=== PATIENT | female | born 1990 | race Caucasian/White ===

== ENCOUNTER 2016-05-16 15:52 | Emergency (ER) | payer OTHER ==
[2016-05-16 16:55] VITALS: BP 107/73
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
== END 2016-05-16 17:30 | disposition home or self-care (01) ==
LOC: UCEAST 15:52
DX: T59.0X1A Toxic effect of nitrogen oxides, accidental (unintentional), initial encounter (principal); T23.621A Corrosion of second degree of single right finger (nail) except thumb, initial encounter; Y93.9 Activity, unspecified; Y92.9 Unspecified place or not applicable
CPT/HCPCS: 99201; G0463

== ENCOUNTER 2016-06-12 12:56 | Emergency (ER) | payer OTHER, BC ==
[2016-06-12] MEDS ORDERED: NS 0.9% 1000 ML* 1,000 ML IV SCH (14:00)
[2016-06-12 14:01] LABS: Hematocrit 42 % (35-47); Hemoglobin 14.5 g/dl (12.0-16.0); Mean Corpuscular HGB Conc 34 g/dl (31-36); Mean Corpuscular Hemoglobin 32 pg (27-31); Mean Corpuscular Volume 95 fL (80-97); Mean Platelet Volume 9 um3 (7.4-10.4); Red Blood Count 4.48 10^6/ul (4.0-5.4); Red Cell Distribution Width 14 % (10.5-15); White Blood Count 7.8 10^3/ul (3.5-10.8)
--- NOTE | 2016-06-12 14:10 | RAD ---
HISTORY: Left upper extremity numbness and tingling, difficulty speaking COMPARISONS: None TECHNIQUE: Multiple contiguous axial CT scans were obtained of the head without intravenous contrast. FINDINGS: HEMORRHAGE/INFARCT: There is no hemorrhage or acute infarct. MASSES/SHIFT: There is no mass or shift. EXTRA-AXIAL SPACES: There are no extra-axial fluid collections. SULCI AND VENTRICLES: The sulci and ventricles are normal in size and position for the patient's stated age. CEREBRUM: There are no focal parenchymal abnormalities. BRAINSTEM: There are no focal parenchymal abnormalities. CEREBELLUM: There are no focal parenchymal abnormalities. VESSELS: The vessels are grossly normal. PARANASAL SINUSES: The paranasal sinuses are clear. ORBITS: The orbits are unremarkable. BONES AND SOFT TISSUE: No bone or soft tissue abnormalities are noted. OTHER: None IMPRESSION: NO ACUTE INTRACRANIAL PATHOLOGY. PRELIMINARY FINDINGS WERE DISCUSSED WITH DR. AMARO IN THE EMERGENCY DEPARTMENT AT APPROXIMATELY 2:07 PM ON JUNE 12, 2016.
[2016-06-12 14:17] LABS: ALT 21 U/L (7-52); AST 27 U/L (13-39); Albumin 4.3 g/dL (3.2-5.2); Alkaline Phosphatase 39 U/L (34-104); Anion Gap 2 mmol/L (2-11); BUN/Creatinine Ratio 23.7 (8-20); Blood Urea Nitrogen 18 mg/dL (6-24); CO2 Carbon Dioxide 29 mmol/L (22-32); Calcium 9.5 mg/dL (8.6-10.3); Chloride 103 mmol/L (101-111); Cholesterol 130 mg/dL; EGFR African American 120.2 (>60); EGFR Non-African American 93.5 (>60); Globulin 2.4 g/dL (2-4); Glucose 76 mg/dL (70-100); HDL Cholesterol 67.6 mg/dL; LDL Cholesterol 55 mg/dL; Potassium 3.9 mmol/L (3.5-5.0); Sodium 134 mmol/L (133-145); Total Protein 6.7 g/dL (6.4-8.9); Triglycerides 38 mg/dL
--- NOTE | 2016-06-12 14:23 | RAD ---
INDICATION: Left arm weakness COMPARISON: None TECHNIQUE: PA and lateral dual-energy views were obtained. FINDINGS: Bones/Soft Tissues: There are no acute bony findings. Cardiomediastinal: The cardiomediastinal silhouette is normal. Lungs: There are no infiltrates. Pleura: There are no pleural effusions. Other: None IMPRESSION: NEGATIVE EXAMINATION.
--- NOTE | 2016-06-12 15:11 | ED ---
Charlie, DoctorJaneth, scribed for Thaddeus Amaro MD on 06/12/16 at 1406 . Neurological HPI - HPI Summary HPI Summary: 25 year old female arrived to [facility] by ambulance c/o inability to move her left arm and general weakness. She reports the first episode beginning today at 11: 00 am with numbness, weakness, and tingling from the left shoulder through the left fingertips. She additionally describes her left hand "turning purple" while driving, and difficulty squeezing that hand. After arriving to [facility], she reports having another episode involving general weakness, difficulty moving her left arm, and numbness in the left hand. She has PMHx of anxiety. Sami Spears called for patient at 13:42. - History of Current Complaint Chief Complaint: EDExtremityUpper Stated Complaint: LT ARM PAIN/NUMBNESS Time Seen by Provider: 06/12/16 12:58 Hx Obtained From: Patient Hx Last Menstrual Period: 05/10/16 Onset/Duration: Gradual Onset Timing: Constant Onset Severity: Moderate Current Severity: Moderate Pain Intensity: 0 Pain Scale Used: 0-10 Numeric Character: Weak - general weakness, Numbness/Tingling - numbness in let arm, Motor Weakness - weakness when moving left arm Associated Signs and Symptoms: Positive: Weakness - generalized weakness, Numbness - Left arm numbness, Anxiety - Allergy/Home Medications Allergies/Adverse Reactions: Allergies Allergy/AdvReac Type Severity Reaction Status Date / Time Sulfa Antibiotics Allergy Rash Verified 06/12/16 13:32 PMH/Surg Hx/FS Hx/Imm Hx Infectious Disease History: No Infectious Disease History: Denies: Traveled Outside the [place] in Last 30 Days - Family History Known Family History: Negative: Cardiac Disease, Hypertension - Social History Occupation: Student Alcohol Use: None Substance Use Type: Reports: None Smoking Status (MU): Never Smoked Tobacco Review of Systems Negative: Fever Positive: Weakness - generalized weakness, Numbness - numbness in left arm Positive: Anxious All Other Systems Reviewed And Are Negative: Yes Physical Exam Triage Information Reviewed: Yes Vital Signs On Initial Exam: Initial Vitals Temp Pulse Resp BP Pulse Ox 98.8 F 67 20 136/86 99 06/12/16 13:15 06/12/16 13:15 06/12/16 13:15 06/12/16 13:15 06/12/16 13:15 Vital Signs Reviewed: Yes Appearance: Positive: Well-Appearing, No Pain Distress Skin: Positive: Warm, Skin Color Reflects Adequate Perfusion, Dry Head/Face: Positive: Normal Head/Face Inspection Eyes: Positive: EOMI, [facility] ENT: Positive: Normal ENT inspection Neck: Positive: Supple, Nontender Respiratory/Lung Sounds: Positive: Clear to Auscultation, Breath Sounds Present Cardiovascular: Positive: RRR Abdomen Description: Positive: Nontender, Soft Bowel Sounds: Positive: Present Musculoskeletal: Positive: Strength/ROM Intact - 5/5 bilateral ankle strength Neurological: Positive: Sensory/Motor Intact, Alert, Oriented to Person Place, Time. Negative: Normal - generalized weakness Psychiatric: Positive: Anxious Diagnostics - Vital Signs Vital Signs Temp Pulse Resp BP Pulse Ox 06/12/16 13:35 50 100 06/12/16 13:34 126/81 06/12/16 13:28 97.8 F 65 20 121/75 0 06/12/16 13:15 98.8 F 67 20 136/86 99 - Laboratory Lab Results: Lab Results 06/12/16 06/12/16 06/12/16 Range/Units 13:48 13:48 13:48 WBC 7.8 (3.5-10.8) 10^3/ul RBC 4.48 (4.0-5.4) 10^6/ul Hgb 14.5 (12.0-16.0) g/dl Hct 42 (35-47) % MCV 95 (80-97) fL MCH 32 H (27-31) pg MCHC 34 (31-36) g/dl RDW 14 (10.5-15) % Plt Count 193 (150-450) 10^3/ul MPV 9 (7.4-10.4) um3 Neut % (Auto) 69.3 (38-83) % Lymph % (Auto) 22.9 L (25-47) % [place] % (Auto) 6.4 (1-9) % Eos % (Auto) 0.7 (0-6) % Baso % (Auto) 0.7 (0-2) % Absolute Neuts (auto) 5.4 (1.5-7.7) 10^3/ul Absolute Lymphs (auto) 1.8 (1.0-4.8) 10^3/ul Absolute Monos (auto) 0.5 (0-0.8) 10^3/ul Absolute Eos (auto) 0.1 (0-0.6) 10^3/ul Absolute Basos (auto) 0.1 (0-0.2) 10^3/ul Absolute Nucleated RBC 0 10^3/ul Nucleated RBC % 0 INR (Anticoag Therapy) 0.96 (0.89-1.11) APTT 29.4 (26.0-36.3) seconds D-Dimer, Quantitative < 200 (Less Than 230) ng/mL Sodium 134 (133-145) mmol/L Potassium 3.9 (3.5-5.0) mmol/L Chloride 103 (101-111) mmol/L Carbon Dioxide 29 (22-32) mmol/L Anion Gap 2 (2-11) mmol/L BUN 18 (6-24) mg/dL Creatinine 0.76 (0.51-0.95) mg/dL Est GFR ( Amer) 120.2 (>60) Est GFR (Non-Af Amer) 93.5 (>60) BUN/Creatinine Ratio 23.7 H (8-20) Glucose 76 (70-100) mg/dL Lactic Acid (0.5-2.0) mmol/L Calcium 9.5 (8.6-10.3) mg/dL Total Bilirubin 0.80 (0.2-1.0) mg/dL AST 27 (13-39) U/L ALT 21 (7-52) U/L Alkaline Phosphatase 39 (34-104) U/L Troponin I 0.00 (<0.04) ng/mL Total Protein 6.7 (6.4-8.9) g/dL Albumin 4.3 (3.2-5.2) g/dL Globulin 2.4 (2-4) g/dL Albumin/Globulin Ratio 1.8 (1-3) Triglycerides 38 mg/dL Cholesterol 130 mg/dL LDL Cholesterol 55 mg/dL HDL Cholesterol 67.6 mg/dL Beta HCG, Quant < 0.60 mIU/mL Blood Type Antibody Screen 06/12/16 06/12/16 Range/Units 13:48 13:48 WBC (3.5-10.8) 10^3/ul RBC (4.0-5.4) 10^6/ul Hgb (12.0-16.0) g/dl Hct (35-47) % MCV (80-97) fL MCH (27-31) pg MCHC (31-36) g/dl RDW (10.5-15) % Plt Count (150-450) 10^3/ul MPV (7.4-10.4) um3 Neut % (Auto) (38-83) % Lymph % (Auto) (25-47) % [place] % (Auto) (1-9) % Eos % (Auto) (0-6) % Baso % (Auto) (0-2) % Absolute Neuts (auto) (1.5-7.7) 10^3/ul Absolute Lymphs (auto) (1.0-4.8) 10^3/ul Absolute Monos (auto) (0-0.8) 10^3/ul Absolute Eos (auto) (0-0.6) 10^3/ul Absolute Basos (auto) (0-0.2) 10^3/ul Absolute Nucleated RBC 10^3/ul Nucleated RBC % INR (Anticoag Therapy) (0.89-1.11) APTT (26.0-36.3) seconds D-Dimer, Quantitative (Less Than 230) ng/mL Sodium (133-145) mmol/L Potassium (3.5-5.0) mmol/L Chloride (101-111) mmol/L Carbon Dioxide (22-32) mmol/L Anion Gap (2-11) mmol/L BUN (6-24) mg/dL Creatinine (0.51-0.95) mg/dL Est GFR ( Amer) (>60) Est GFR (Non-Af Amer) (>60) BUN/Creatinine Ratio (8-20) Glucose (70-100) mg/dL Lactic Acid 1.2 (0.5-2.0) mmol/L Calcium (8.6-10.3) mg/dL Total Bilirubin (0.2-1.0) mg/dL AST (13-39) U/L ALT (7-52) U/L Alkaline Phosphatase (34-104) U/L Troponin I (<0.04) ng/mL Total Protein (6.4-8.9) g/dL Albumin (3.2-5.2) g/dL Globulin (2-4) g/dL Albumin/Globulin Ratio (1-3) Triglycerides mg/dL Cholesterol mg/dL LDL Cholesterol mg/dL HDL Cholesterol mg/dL Beta HCG, Quant mIU/mL Blood Type B Positive Antibody Screen Negative Result Diagrams: 06/12/16 13:48 06/12/16 13:48 Lab Statement: Any lab studies that have been ordered have been reviewed, and results considered in the medical decision making process. - Radiology CXR Radiology Interpretation Completed By: Radiologist - IMPRESSION: NEGATIVE EXAMINATION. - CT Brain CT CT Interpretation Completed By: Radiologist - IMPRESSION: NO ACUTE INTRACRANIAL PATHOLOGY. PRELIMINARY FINDINGS WERE DISCUSSED WITH DR. AMARO IN THE EMERGENCY DEPARTMENT AT APPROXIMATELY 2:07 PM ON JUNE 12, 2016. - EKG 14:13 Cardiac Rate: Bradycardia - 54 bpm EKG Rhythm: Sinus Bradycardia - [address] Segment: Normal Ectopy: None Re-Evaluation - Re-Evaluation First Eval Re-Evaluation Time: 14:42 - discussed lab results with patient Course/Dx - Course Assessment/Plan: DR MURRELL WILL SEE PATIENT IN ED. NEUROLOGY CONSULT PENDING AT SHIFT CHANGE. STABLE IN ED. - Diagnoses Provider Diagnoses: Arm weakness - Physician Notifications Discussed Care of Patient With: 13:49 - discussed patient with Dr. Ross ( neurologist). He agrees to come down and see patient. 14:12 - discussed patient with Dr. Vyas (neurologist on-call). Discharge - Discharge Plan Condition: Stable Disposition: OTHER Discharge Disposition Comment: NEUROLOGY CONSULTATION PENDING AT SHIFT CHANGE STABLE. Referrals: [facility] HARLAN Seay [Primary Care Provider] - The documentation as recorded by the Doctor pollard Tahera accurately reflects the service I personally performed and the decisions made by me, Thaddeus Amaro MD.
[2016-06-12 15:17] LABS: Urine Bacteria Absent (Absent); Urine Bilirubin Negative (Negative); Urine Glucose Negative (Negative); Urine Nitrite Negative (Negative)
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
[2016-06-12 16:48] VITALS: BP 111/66
--- NOTE | 2016-06-12 20:42 | ED ---
Robert Guerra Erika, scribed for Israel De Dios MD on 06/12/16 at 1614 . Progress - Progress Note Progress Note: Dr. Parikh signed out the pt. He recommended to follow instructions from Dr. Vyas from neurology. He did a full assessment, and he does not think the pt has any neuro deficits. There is no vascular deficit, there are good pulses, the D-dimer is negative, pt is NV intact, therefore the pt will be discharged home with follow up from her PCP. If needed, the patient can also follow up with vascular surgeon if her PCP sees this to be appropriate. Course/Dx - Diagnoses Provider Diagnoses: Neuropathy, Paresthesia Discharge - Discharge Plan Condition: Stable Disposition: HOME Patient Education Materials: Peripheral Neuropathy (ED), Paresthesia (ED) Referrals: [facility] HARLAN Seay [Primary Care Provider] - Additional Instructions: Please follow up with your PCP The documentation as recorded by the Robert pollard Erika accurately reflects the service I personally performed and the decisions made by , Israel De Dios MD.
== END 2016-06-12 16:46 | disposition home or self-care (01) ==
LOC: ED 12:56
DX: M62.81 Muscle weakness (generalized) (principal); R53.1 Weakness; F41.9 Anxiety disorder, unspecified
CPT/HCPCS: 36415; 70450; 71010; 80053; 80061; 81003; 81015; 83605; 84484; 84702; 85025; 85379; 85610; 85730; 86850; 86900; 86901; 87086; 93005; 96360; 99285

== ENCOUNTER 2016-08-12 10:09 | Emergency (ER) | payer OTHER, BC ==
[2016-08-12 10:21] VITALS: BP 105/66
[2016-08-12] MEDS ORDERED: Fluorescein Sodium TOPICAL* 1 MG TEST OPHTHALMIC ONE (11:09)
[2016-08-12] MEDS ORDERED: BSS OPTH.SOL* BTL ONE (11:12)
--- NOTE | 2016-08-12 11:18 | UC ---
Eye Complaint HPI - HPI Summary HPI Summary: L eye pain, light-sensitivity, and swelling since yesterday. Denies possibility of FB, but has mild FB sensation that is worse with closed lid. Works in a lab, wears contacts. - History of Current Complaint Chief Complaint: UCEye Stated Complaint: EYE COMPLAINT Time Seen by Provider: 08/12/16 11:01 Hx Obtained From: Patient Hx Last Menstrual Period: 08/09/16 ?: No Onset/Duration: Gradual Onset, Lasting Hours Timing: Constant Severity Initially: Mild Severity Currently: Moderate Location of Injury: Conjunctiva, Eye Lid (lower), Eye Lid (upper) Character: Sharp Aggravating Factor(s): Light, Contact Lens Associated Signs And Symptoms: Positive: Photophobia, Drainage (Clear) - Risk Factors Penetrating Injury Risk Factor: Negative - Allergies/Home Medications Allergies/Adverse Reactions: Allergies Allergy/AdvReac Type Severity Reaction Status Date / Time Sulfa Antibiotics Allergy Rash Verified 06/19/16 09:12 PMH/Surg Hx/FS Hx/Imm Hx Endocrine History Of: Denies: Diabetes Cardiovascular History Of: Denies: Hypertension, Pacemaker/ICD GI/ History Of: Denies: Renal Disease - Surgical History Surgical History: Yes Surgery Procedure, Year, and Place: APPENDIX AGE 7. HEMATOMA RIGHT KNEE AGE 15 - Family History Known Family History: Negative: Cardiac Disease, Hypertension - Social History Occupation: Employed Full-time Alcohol Use: None Substance Use Type: None Smoking Status (MU): Never Smoked Tobacco Review of Systems Constitutional: Negative Skin: Negative Eyes: Drainage, Eye Redness, Photophobia ENT: Negative Respiratory: Negative Cardiovascular: Negative Gastrointestinal: Negative Genitourinary: Negative Motor: Negative Neurovascular: Negative Musculoskeletal: Negative Neurological: Negative Psychological: Negative All Other Systems Reviewed And Are Negative: Yes Physical Exam Triage Information Reviewed: Yes Appearance: Well-Appearing, No Pain Distress, Well-Nourished Vital Signs: Initial Vital Signs Temp 99.0 F 08/12/16 10:17 Pulse 55 08/12/16 10:17 Resp 18 08/12/16 10:17 BP 105/66 08/12/16 10:17 Pulse Ox 100 08/12/16 10:17 Vital Signs Reviewed: Yes Eye Exam: Other - PERRL, L eye negative for fluorescein uptake Eyes: Positive: Conjunctiva Inflamed, Other: - L eye photophobia noted ENT Exam: Normal ENT: Positive: Normal ENT inspection, Hearing grossly normal, Pharynx normal, TMs normal Dental Exam: Normal Neck exam: Normal Neck: Positive: Supple, Nontender Respiratory Exam: Normal Respiratory: Positive: Chest non-tender, Lungs clear, Normal breath sounds, No respiratory distress, No accessory muscle use Cardiovascular Exam: Normal Cardiovascular: Positive: RRR, No Murmur Musculoskeletal Exam: Normal Neurological Exam: Normal Neurological: Positive: Alert Psychological Exam: Normal Skin Exam: Normal Eye Complaint Course/Dx - Course Course Of Treatment: Apt made with Lui mac for 12:45 today for further evaluation - Differential Dx/Diagnosis Provider Diagnoses: L eye pain and photophobia Discharge - Discharge Plan Condition: Stable Disposition: HOME Patient Education Materials: Photophobia (ED) Referrals: Clinton Poe MD [Medical Doctor] - 1 Day Additional Instructions: Please see the Ophthalmology office today at 12:45 as planned. I am not certain why you are having this eye discomfort.
== END 2016-08-12 11:40 | disposition home or self-care (01) ==
LOC: UCEAST 10:09
DX: H57.12 Ocular pain, left eye (principal); H53.142 Visual discomfort, left eye; Z88.1 Allergy status to other antibiotic agents
CPT/HCPCS: 99211; A9270-GY; G0463

== ENCOUNTER 2017-09-16 07:05 | Emergency (ER) | payer OTHER, BC ==
[2017-09-16 07:25] VITALS: BP 115/79
--- NOTE | 2017-09-16 08:01 | UC ---
Titus Guerra Stephanie[facility] 09/16/17 at 0738 . Eye Complaint HPI - HPI Summary HPI Summary: In Room Note: The pt is a 26 y/o F presenting to with c/o bilateral eye-lid swelling that began on 09/13/17. Symptoms include rhinorrhea, eye crusting, clear drainage, eyelid itchiness and burning. She denies recent illness. The pt denies overusing her contact lenses. She denies hx of allergies. Patient notes crusting in the mornings, both eyes. Alternating both eyes. MD Note: Vital signs stable. Afebrile. 07/17 discomfort. Visit hx: Similar eye complaint August 2016. At that time, where was concern about foreign body and she was referred to Dr. Poe. Pt is not on any medications. She is allergic to sulfa. Nurse Note: c/o bi-lateral eye lid swelling, blood shot scleras, clear drainage for the past 3 days. She also states eyes feel itchy and burning at times. Denies any "crusting over" when she woke up this morning. Denies any recent URI. - History of Current Complaint Chief Complaint: UCEye Stated Complaint: EYE ISSUE Time Seen by Provider: 09/16/17 07:33 Hx Obtained From: Patient Hx Last Menstrual Period: 09/02/17 ?: No Onset/Duration: Gradual Onset, Lasting Days - 3, Still Present Timing: Constant Severity Currently: Mild Pain Intensity: 4 Pain Scale Used: 0-10 Numeric Location of Injury: Eye Lid (lower), Eye Lid (upper) Aggravating Factor(s): Nothing Alleviating Factor(s): Nothing Associated Signs And Symptoms: Positive: Drainage (Clear), Swelling - Allergies/Home Medications Allergies/Adverse Reactions: Allergies Allergy/AdvReac Type Severity Reaction Status Date / Time Sulfa (Sulfonamide Allergy Rash Verified 09/16/17 07:25 Antibiotics) Home Medications: Home Medications Ibuprofen TAB* [Advil TAB*] 400 mg PO Q6H PRN 09/16/17 [History Confirmed ] Naphazoline HCl/Pheniramine [Opcon-A Eye Drops] 15 ml OP Q4HR PRN 09/16/17 [ History Confirmed 09/16/17] PMH/Surg Hx/FS Hx/Imm Hx Previously Healthy: Yes - Hx of eye glasses/contacts. - Surgical History Surgical History: Yes Surgery Procedure, Year, and Place: APPENDIX AGE 7. HEMATOMA RIGHT KNEE AGE 15 - Family History Known Family History: Negative: Cardiac Disease, Hypertension - Social History Occupation: Student Lives: Dormitory/Roommates Alcohol Use: Occasionally Substance Use Type: None Smoking Status (MU): Never Smoked Tobacco Have You Smoked in the Last Year: No Review of Systems Constitutional: Negative Skin: Negative Eyes: Drainage - clear, Eye Redness, Other - eye lid swelling, eyelid burning/ pain, eyelid itchiness. ENT: Nasal Discharge Respiratory: Negative Cardiovascular: Negative Gastrointestinal: Negative Genitourinary: Negative Motor: Negative Neurovascular: Negative Musculoskeletal: Negative Neurological: Negative Psychological: Negative All Other Systems Reviewed And Are Negative: Yes - Comments Additional Review of Systems Comments: POSITIVE: rhinorrhea, eye crusting, clear drainage, eyelid itchiness and burning Physical Exam - Summary Physical Exam Summary: Appearance: The patient is well-appearing, is in no pain distress, and is well- nourished. Eyes: injected sclera bilaterally: R more than L. Mild swelling of R upper lid. No periorbital erythema in either eye. Injection of vulvar conjunctiva. PERRLA. No evidence of stye. No foreign body noted under. No corneal ulcer or disruption noted under eye. ENT: The hearing is grossly normal, the pharynx is normal, and the TMs are normal. There is no muffled or hoarse voice. Neck: The neck is supple and there is no lymphadenopathy. Respiratory: The chest is nontender. The lungs are clear, there are normal breath sounds, and there is no respiratory distress. Cardiovascular: Heart is regular rate and rhythm. There is no murmur. Abdomen: The abdomen is soft and nontender. There is no organomegaly. Bowel sounds: present Musculoskeletal: Strength is intact. The patient moves all extremities. Neurological: The patient is alert. Psychological: The patient displays age appropriate behavior Skin: Negative for rashes. Triage Information Reviewed: Yes Vital Signs: Initial Vital Signs Temp 98.6 F 09/16/17 07:15 Pulse 48 09/16/17 07:15 Resp 14 09/16/17 07:15 BP 115/79 09/16/17 07:15 Pulse Ox 100 09/16/17 07:15 Vital Signs Reviewed: Yes Eye Complaint Course/Dx - Course Course Of Treatment: Medications have been included in the original chart and reviewed. Patient is a healthy 26-year-old who reports a 2+ day history of eye injection or discharge some crusting and discomfort. The condition has varied over the left eye hurt more than the right now the right eye is more injected and uncomfortable than the left. Approximately one year ago she had a stye in her right eye. Today's examination shows a bilateral injection, no corneal ulcer, and a history that could be related to an allergic reaction rather than a bacterial or viral conjunctivitis. At this time, however, I will treat her for conjunctivitis with erythromycin. - Differential Dx/Diagnosis Differential Diagnosis/HQI/PQRI: Conjunctivitis, Corneal Abrasion Provider Diagnoses: Conjunctivitis, bilateral Discharge - Sign-Out/Discharge Documenting (check all that apply): Discharge/Admit/Transfer - Discharge - Discharge Plan Condition: Stable Disposition: HOME Prescriptions: Erythromycin OPTH OINT* [Erythromycin 0.5% OPTH OINT*] 1 applic RIGHT EYE QID # 1 ophth.oint MDD every 2 hours Patient Education Materials: Conjunctivitis (ED) Referrals: [facility] – [place] [facility] REFERRAL [Outside] Care [facility] [Outside] Additional Instructions: PLEASE SEEK CARE AT THE EMERGENCY DEPARTMENT IF SYMPTOMS WORSEN OR IF NEW SYMPTOMS DEVELOP. FOLLOW UP WITH YOUR PRIMARY CARE PHYSICIAN. As we discussed: You have a conjunctivitis, and infection of both eyes. This could be viral, allergic, or bacterial. We will treat this as a bacterial conjunctivitis with erythromycin. Use the medication every 2 hours when awake today and tomorrow, if there is little improvement. Then move to doing treatment for times a day for 5 days for a total of 7 days, or 1 day after her condition is completely resolved. Go to the emergency department or call us for any visual problems, worsening pain, worsening redness, temperature, or spreading of this condition G her skin around her eyes. - Billing Disposition and Condition Condition: STABLE Disposition: Home The documentation as recorded by the Titus pollard Stephanie accurately reflects the service I personally performed and the decisions made by me, Sky Lopez MD.
== END 2017-09-16 08:04 | disposition home or self-care (01) ==
LOC: UCEAST 07:05
DX: H10.33 Unspecified acute conjunctivitis, bilateral (principal); Z88.2 Allergy status to sulfonamides
CPT/HCPCS: 99212; G0463